=== PATIENT | female | born 1965 | race Caucasian/White ===

== ENCOUNTER 2018-06-21 04:55 | Inpatient (IN) ==
[2018-06-15 16:08] LABS: Appearance,Urine CLEAR; Bilirubin,Urine NEG (NEG); Color,Urine STRAW; Glucose,Urine (UA) NEGATIVE (NEG); Leukocyte Esterase,Urine NEG /uL (NEG); Protein,Urine NEG (NEG); Specific Gravity,Urine 1.009 (1.000-1.035); Urine Blood NEG mg/dL (<0.03); Urobilinogen,Urine NEG (NEG)
[2018-06-15 17:40] LABS: Basophils # (Auto) 0 K/mcL (0.0-0.3); Basophils % (Auto) 0.2 % (0.0-2.0); Eosinophils # (Auto) 0.1 K/mcL (0.0-0.7); Eosinophils % (Auto) 1.2 % (0.0-7.0); Granulocytes % (Auto) 55.7 % (38.0-78.0); Lymphocytes # (Auto) 3.1 K/mcL (1.5-4.8); Lymphocytes % (Auto) 33.3 % (15.5-49.0); Mean Cell Volume 88.6 fL (80.0-100.0); Mean Corpuscular Hemoglobin 29.3 pg (26.0-34.0); Monocytes # (Auto) 0.9 K/mcL (0.1-0.9); Monocytes % (Auto) 9.6 % (1.0-12.0); Platelet Count 293 K/mcL (140-440); Red Cell Distribution Width 14.5 % (11.5-14.5)
[2018-06-15 17:45] LABS: Blood Urea Nitrogen 11 mg/dl (6-20)
[2018-06-21] MEDS ORDERED: PREGABALIN 75 MG CAPSULE PO SCH (07:00)
[2018-06-21] MEDS ORDERED: oxyCODONE 10 MG TAB.ER.12H PO SCH (07:00)
[2018-06-21] MEDS ORDERED: ceFAZolin 1 GM VIAL IV SCH (07:00)
[2018-06-21] MEDS ORDERED: 0.9 % SODIUM CHLORIDE 9 ML, KETOROLAC 30 MG, ROPIVACAINE HCL/PF 49.5 ML, EPINEPHrine 0.... IJ SCH (07:00)
[2018-06-21] MEDS ORDERED: CELECOXIB 200 MG CAPSULE PO SCH (07:00)
[2018-06-21] MEDS ORDERED: ONDANSETRON 4 MG/2 ML VIAL IV ONE (07:25)
[2018-06-21] MEDS ORDERED: GLYCOPYRROLATE 0.2 MG/ML VIAL IV ONE (07:25)
[2018-06-21] MEDS ORDERED: LIDOCAINE HCL/PF 100 MG/5 ML SYRINGE IV ONE (07:25)
[2018-06-21] MEDS ORDERED: PROPOFOL 200 MG/20 ML VIAL IV ONE (07:25)
[2018-06-21] MEDS ORDERED: TRANEXAMIC ACID 1,000 MG/10 ML VIAL IV ONE ×2 (07:25→08:53)
[2018-06-21] MEDS ORDERED: KETAMINE 100 MG/ML ML IV ONE (07:25)
[2018-06-21] MEDS ORDERED: ROPIVACAINE HCL/PF 30 ML VIAL IJ ONE (07:25)
[2018-06-21] MEDS ORDERED: MIDAZOLAM 2 MG/2 ML VIAL IV ONE (07:25)
--- NOTE | 2018-06-21 08:52 | Brief Operative Note ---
Date of procedure: 06/21/18 Pre-op diagnosis: right knee osteoarthritis Post-op diagnosis: same Procedure: right total knee arthroplasty Complications: none Surgeon: Jean Carlos March [employer] Specialist: Marian Coles Estimated blood loss (cc): 100 Tourniquet Time (Minutes): 52 Specimens Removed/Pathology: none sent Condition: stable Disposition: PACU
[2018-06-21] MEDS ORDERED: IPRATROPIUM/ALBUTEROL 3 ML AMPUL.NEB NEB PRN (08:53)
[2018-06-21] MEDS ORDERED: FLEETS ADULT ENEMA PR PRN (08:53)
[2018-06-21] MEDS ORDERED: ACETAMINOPHEN 325 MG TABLET PO PRN (08:53)
[2018-06-21] MEDS ORDERED: POLYETHYLENE GLYCOL 3350 17 GM PACKET PO PRN (08:53)
[2018-06-21] MEDS ORDERED: fentaNYL 100 MCG/2 ML VIAL IV PRN (08:53)
[2018-06-21] MEDS ORDERED: BENZOCAINE/MENTHOL 1 LOZENGE PO PRN (08:53)
[2018-06-21] MEDS ORDERED: METHOCARBAMOL 1,000 MG/10 ML VIAL IV PRN (08:53)
[2018-06-21] MEDS ORDERED: HYDROcodone/APAP 10/325MG TABLET PO PRN (08:53)
[2018-06-21] MEDS ORDERED: MAGNESIUM HYDROXIDE 30 ML ORAL.SUSP PO PRN (08:53)
[2018-06-21] MEDS ORDERED: ACETAMINOPHEN 1,000 MG/100 ML BOTTLE IV ONE (08:53)
[2018-06-21] MEDS ORDERED: ONDANSETRON 4 MG/2 ML VIAL IV PRN (08:53)
[2018-06-21] MEDS ORDERED: MEPERIDINE 25 MG/ML SYRINGE IV PRN (08:53)
[2018-06-21] MEDS ORDERED: BISACODYL 10 MG SUPP.RECT PR PRN (08:53)
[2018-06-21] MEDS ORDERED: LACTATED RINGERS 1,000 ML IV SCH (09:00)
--- NOTE | 2018-06-21 09:25 | Operative Note ---
DATE OF OPERATION: 06/21/2018 PREOPERATIVE DIAGNOSIS: Degenerative joint disease, right knee. POSTOPERATIVE DIAGNOSIS: Degenerative joint disease, right knee. PROCEDURE: Right total knee arthroplasty. SURGEON: Garret March M.D. PIPELINE CONSTRUCTION INSPECTOR SURGEON: Marian Coles PA-C. ANESTHESIA: Spinal with LMA assist. ESTIMATED BLOOD LOSS: 100 mL. COMPLICATIONS: None noted. SPECIMENS REMOVED: None. DRAINS: None. TOURNIQUET TIME: 52 minutes at 300 mmHg. IMPLANTS: DePuy CMW2 bone cement 20 grams x4; DePuy Attune femoral posterior stabilized size 6 narrow, right, cemented; DePuy Attune tibial insert fixed bearing posterior stabilized size 6, 5 mm AOX; DePuy Attune patella medialized dome 38 mm cemented AOX; DePuy Attune tibial base fixed bearing size 5, cemented. INDICATIONS: The patient has had a long-standing history of worsening pain in the knee that has failed conservative treatment. Radiographs have confirmed advanced degenerative joint disease. After a long discussion about treatment options, the patient elected to proceed with a knee arthroplasty. The risks and benefits were discussed with the patient in detail including, but not limited to, the risks of anesthesia, problems with the heart or lungs related to anesthesia, infection, compromise or injury to the nerves and blood vessels, deep venous thrombosis, pulmonary embolism, pneumonia, continued pain after surgery, worsening pain or symptoms after surgery, swelling, loss of motion, instability, leg length discrepancy, and need for repeat surgery. DESCRIPTION OF PROCEDURE: The patient was seen in the pre-anesthesia waiting room where all questions were answered and the correct side and site were identified and marked. The patient was transferred to the operating room and administered the anesthetic and given pre-operative antibiotics. A time-out was then called. The extremity was prepped and draped, exsanguinated, and the tourniquet was inflated to 300 mmHg. A midline skin incision was then made with a standard medial parapatellar arthrotomy. Debridement of the menisci, ACL, and PCL was performed followed by balancing releases in the medial lateral plane. We then established intramedullary access to both the femur and tibia in a standard fashion. The femoral guide fatmata was initially placed with the distal femoral guide, pinned into place, and the distal femoral cut was performed and checked with a flat plate. We then turned our attention to the tibia. The intramedullary guide was placed with the proximal tibial cutting block. The block was appropriately positioned off the affected side, varus and valgus was checked with the extra-medullary guide, and the block was pinned into place. The proximal tibial cut was performed and the tibia was prepared for the tibial implant with appropriate rotation. The tibia, femur, and posterior compartment were debrided of osteophytes, loose bodies, and meniscal fragments We then used the gap balancing technique to balance extension with the first two cuts and good balancing was obtained with a 10 millimeter gap block. We turned our attention back to the femur and used the referencing block and implant to size appropriately. Using the gap balancing technique for the flexion space we set our rotation of the femur off the tibial cut. Anesthesia gave the patient 1 gram of Tranexamic Acid via an intravenous route. We placed the 4 in 1 cutting block and made anterior, posterior, and chamfer cuts. Box plasty cuts were then made in a standard fashion for the posterior stabilized prosthesis. We then completed osteophyte release and posterior capsule release from the posterior compartment. Trials were placed and we chose the polyethylene insert thickness that provided the best stability in all planes. With the trials in place, we did a measured resection for a resurfacing patella. We sized the patella and placed the patella trial and performed a lateral facetectomy with the saw and rongeur. Good tracking was obtained. We removed all trials, irrigated and dried all cut surfaces. We cemented the components into place including tibia, femur and patella. We placed a trial liner and held the knee in full extension with the patella compressed while the cement cured. We then removed all excess cement and placed the final polyethylene tibiofemoral component. Irrigation with 3 liters of antibiotic saline was then performed using jet-lavage. We let the tourniquet down and coagulated bleeding vessels. We injected a 100 cubic centimeter volume including Ropivacaine 49.25 cubic centimeters at 5 milligrams per cubic centimeter, Ketorolac 30 milligrams, and Epinephrine 0.5 milligrams into 100 cubic centimeters volume of normal saline. We closed the retinaculum with #2 Stratafix and 0 Vicryl. We closed the subcutaneous tissue and skin in layers out to Dermabond on the skin. A sterile pressure dressing was applied. All needle and sponge counts were correct. The patient was transferred to the recovery room in stable condition. CLAUDIO:ashvin Washburn: 06/21/2018 09:00:22 Job ID: [id number] Doc ID: [id number] Garret March MD
--- NOTE | 2018-06-21 09:38 | XRay Report ---
CLINICAL INFORMATION: Postsurgical follow-up TECHNIQUE: Portable AP and crosstable lateral right knee COMPARISON: None. FINDINGS: Status post right total knee arthroplasty. Normal anatomic alignment. There is postsurgical soft tissue and intra-articular gas. IMPRESSION: Status post right total knee arthroplasty Interpreted and Authenticated by: Jean Carlos Mckee 06/21/18
[2018-06-21] MEDS: 0.9 % SODIUM CHLORIDE 1,000 ML IV SCH ×2 (10:30→18:38)
[2018-06-21] MEDS: KETOROLAC 15 MG/ML VIAL IV SCH ×2 (12:00→18:00)
[2018-06-21] MEDS: ASPIRIN 325 MG ENTERIC COATED TABLET PO SCH ×2 (12:13→23:17)
[2018-06-21] MEDS: ONDANSETRON 4 MG/2 ML VIAL IV PRN ×2 (13:46→19:52)
[2018-06-21] MEDS: ceFAZolin 1 GM VIAL IV SCH ×2 (15:34→23:34)
[2018-06-21] MEDS: 0.9 % SODIUM CHLORIDE 10 ML SYRINGE IV SCH ×2 (15:50→23:34)
[2018-06-21] MEDS: DOCUSATE SODIUM 100 MG CAPSULE PO SCH ×2 (19:09→23:18)
[2018-06-21] MEDS ORDERED: CYCLOBENZAPRINE 10 MG TABLET PO SCH (21:00)
[2018-06-21] MEDS: SENNOSIDES 1 TABLET PO SCH (23:17)
[2018-06-21] MEDS: ONDANSETRON ODT 4 MG TABLET SL PRN (23:33)
[2018-06-22] MEDS: KETOROLAC 15 MG/ML VIAL IV SCH ×5 (00:35→23:53)
[2018-06-22] MEDS: 0.9 % SODIUM CHLORIDE 1,000 ML IV SCH ×4 (02:22→21:37)
[2018-06-22] MEDS: ONDANSETRON 4 MG/2 ML VIAL IV PRN (06:26)
[2018-06-22] MEDS: 0.9 % SODIUM CHLORIDE 10 ML SYRINGE IV SCH ×3 (06:36→23:54)
--- NOTE | 2018-06-22 06:45 | Orthopedic Progress Note ---
Subjective Patient information: Note initiated : 06/22/18 at 6:42 am Service Date, if different from initiated Date: [] Patient: Shree Perdomo 52 y/o F admitted on 06/21/18 for Right Total Knee Arthroplasty. Chief Complaint: [POD #1 s/p right TKA Doing okay this morning. Struggled with pain overnight. Also had low BP per nurse (90s/60s) which is not typical per the patient. Denies light headedness, headache, SOB, CP, numbness, tingling or calf pain. Also been nauseous all night. Been getting Zofran prn. Unable to keep food down. Patient states Morphine is working, Hydrocodone is not.] Objective Vital signs: Vital Signs Temp Pulse Resp BP BP Pulse Ox 06/22/18 04:00 98.1 F 85 16 91/56 97 06/22/18 00:00 97.8 F 80 16 117/72 100 06/21/18 19:08 97.4 F 78 18 102/63 98 06/21/18 17:11 97.2 F 70 14 95/65 96 06/21/18 11:39 77 107/73 98 06/21/18 11:24 70 108/69 98 06/21/18 11:09 72 104/70 97 06/21/18 10:54 72 106/69 97 06/21/18 10:39 80 108/70 97 06/21/18 10:24 74 112/72 96 06/21/18 10:15 99 06/21/18 10:09 78 117/73 97 06/21/18 09:55 96.6 F L 86 21 125/68 96 06/21/18 09:40 97.8 F 87 13 128/70 97 06/21/18 09:25 96.1 F L 91 H 18 117/67 99 06/21/18 09:20 87 17 123/79 100 06/21/18 09:15 89 16 124/68 100 06/21/18 09:10 98.0 F 106 H 14 129/80 97 Intake and Output 06/21/18 06/22/18 06/22/18 21:59 05:59 13:59 Intake Total 1000 / 1000 967 / 967 Output Total 400 / 400 500 / 500 Balance 600 / 600 467 / 467 Intake: IV 1000 / 1000 967 / 967 Sodium Chloride 0.9% 1,000 ml @ 1000 / 1000 967 / 967 125 mls/hr IV .Q8H [facility] Rx#: [id number] Output: Urine Catheter Amount 400 / 400 Void Amount 250 / 250 Emesis 250 / 250 Other: Urine Appearance Clear Urine Color Dark Yellow Urine Odor Normal # Voids 1 Weight 190 lb Intake & Output: Intake & Output 06/21/18 06/22/18 06/22/18 21:59 05:59 13:59 Intake Total 1000 / 1000 967 / 967 Output Total 400 / 400 500 / 500 Balance 600 / 600 467 / 467 Weight 190 lb Intake: IV 1000 / 1000 967 / 967 Sodium Chloride 0.9% 1,000 ml @ 1000 / 1000 967 / 967 125 mls/hr IV .Q8H [facility] Rx#: [id number] Output: Urine Catheter Amount 400 / 400 Void Amount 250 / 250 Emesis 250 / 250 Other: Urine Appearance Clear Urine Color Dark Yellow Urine Odor Normal # Voids 1 Incision: Yes healing, No draining, No red, No swollen, No inflamed, Yes clean and dry Incision clean and dry: Yes Dressing: Yes clean, Yes dry, Yes intact Weight bearing status: as tolerated Neurological exam IM: Yes alert, Yes oriented X3, Yes motor sensory intact, Yes neurovascular intact Extremities exam IM: No calf tenderness, Yes normal capillary refill, No Johnny' s sign, Yes Foot pink and warm, Yes neurovascular intact - Periperhal Pulses Peripheral pulses: 2+: dorsalis pedis (L), dorsalis pedis (R), posterior tibialis (L), posterior tibialis (R) - Labs CBC & BMP: 06/22/18 04:51 06/15/18 14:39 Labs: Orthopedic Labs 06/15/18 14:39 PT 12.3 INR 0.9 06/22/18 06/15/18 04:51 14:39 Hgb 10.9 L 13.8 Hct 32.4 L 41.7 Assessment and Plan (1) Knee osteoarthritis POD #1 s/p right TKA: -monitor BP. Encourage fluids and food -Zofran prn nausea -switch from Hydrocodone to Oxycodone to see if change helps -ambulate as tolerated -dermabond -d/c planning likely to home tomorrow once pain and nausea are better Status: Acute
[2018-06-22] MEDS: oxyCODONE/APAP 5/325MG TABLET PO PRN ×5 (07:43→21:11)
[2018-06-22] MEDS: DOCUSATE SODIUM 100 MG CAPSULE PO SCH ×2 (08:16→21:13)
[2018-06-22] MEDS: ASPIRIN 325 MG ENTERIC COATED TABLET PO SCH ×2 (08:16→21:11)
[2018-06-22] MEDS: ONDANSETRON ODT 4 MG TABLET SL PRN (10:33)
[2018-06-22] MEDS: METHOCARBAMOL 750 MG TABLET PO PRN ×2 (10:34→23:54)
[2018-06-22] MEDS: SENNOSIDES 1 TABLET PO SCH (21:11)
[2018-06-23] MEDS: 0.9 % SODIUM CHLORIDE 1,000 ML IV SCH (01:29)
[2018-06-23] MEDS: oxyCODONE/APAP 5/325MG TABLET PO PRN ×2 (03:57→10:28)
[2018-06-23] MEDS: KETOROLAC 15 MG/ML VIAL IV SCH (05:49)
[2018-06-23] MEDS: 0.9 % SODIUM CHLORIDE 10 ML SYRINGE IV SCH (05:50)
--- NOTE | 2018-06-23 07:08 | Orthopedic Progress Note ---
Subjective Patient information: Note initiated : 06/23/18 at 7:07 am Service Date, if different from initiated Date: [] Patient: Shree Perdomo 52 y/o F admitted on 06/21/18 for Right Total Knee Arthroplasty. Chief Complaint: [] Interval history: doing well. much better today Objective Vital signs: Vital Signs Temp Pulse Resp BP Pulse Ox 06/23/18 04:05 99.2 F H 87 16 122/66 93 06/22/18 23:40 98.7 F 92 H 16 123/67 92 06/22/18 19:45 98.1 F 99 H 16 107/62 95 06/22/18 17:57 98.6 F 97 H 16 110/68 93 06/22/18 12:56 98.6 F 93 H 16 114/75 96 06/22/18 07:53 98.6 F 75 16 102/59 90 Intake and Output 06/22/18 06/23/18 06/23/18 21:59 05:59 13:59 Intake Total 1010 / 1010 200 / 200 Output Total 1450 / 1450 Balance -440 / -440 200 / 200 Intake: Oral 1010 / 1010 200 / 200 Output: Void Amount 1450 / 1450 Other: Meal Lunch Percent of Meal Consumed 75% Urine Appearance Clear Clear Urine Color Straw Bright Yellow Urine Odor Normal Normal # Voids 1 Weight 191 lb Intake & Output: Intake & Output 06/22/18 06/23/18 06/23/18 21:59 05:59 13:59 Intake Total 1010 / 1010 200 / 200 Output Total 1450 / 1450 Balance -440 / -440 200 / 200 Weight 191 lb Intake: Oral 1010 / 1010 200 / 200 Output: Void Amount 1450 / 1450 Other: Meal Lunch Percent of Meal Consumed 75% Urine Appearance Clear Clear Urine Color Straw Bright Yellow Urine Odor Normal Normal # Voids 1 Incision: Yes healing Incision clean and dry: Yes Dressing: Yes clean, Yes dry, Yes intact Weight bearing status: full Neurological exam IM: Yes abnormal gait, Yes alert, Yes oriented X3, Yes motor sensory intact, Yes neurovascular intact Extremities exam IM: No calf tenderness, Yes Foot pink and warm, Yes neurovascular intact - Labs CBC & BMP: 06/23/18 04:30 06/15/18 14:39 Labs: Orthopedic Labs 06/15/18 14:39 PT 12.3 INR 0.9 06/23/18 06/22/18 06/15/18 04:30 04:51 14:39 Hgb 10.4 L 10.9 L 13.8 Hct 31.1 L 32.4 L 41.7 Assessment and Plan (1) Knee osteoarthritis pod 2 s/p tka wbat pain control dvt prophylaxis d/c planning - likely home today Status: Acute
--- NOTE | 2018-06-23 07:10 | Discharge Summary ---
Ortho Discharge - TKA - Patient Instructions Diet: Regular Diet Activity: activity as tolerated, ambulate with assistive device, weight bearing as tolerated Total Knee Protocol: For Total Knee: Start ROM DEB with stationary bike or rocking chair. Work on gaining full extension of knee. Posterior dislocation precautions provided. Hip abductor strengthening and gait training instructions provided. Apply Cryocuff as instructed. Dressing Care: May shower in 2 days - Problem Maintenance (1) Knee osteoarthritis Status: Acute - Follow Up Plan Follow Up Appointments: Marian Coles PA-C [Physician Signal Maintenance Technician] - 07/06/18 11:20 am Disposition: Home, Self-Care Prognosis: Good Rehab Potential: Good I certify that the patient requires SNF services: No Overall status at discharge: patient is progressing back to baseline
[2018-06-23] MEDS: DOCUSATE SODIUM 100 MG CAPSULE PO SCH (10:30)
[2018-06-23] MEDS: ASPIRIN 325 MG ENTERIC COATED TABLET PO SCH (10:31)
== END 2018-06-23 10:45 | disposition home or self-care (01) | DRG 470 ==
LOC: MEDSUR 04:55
PROVIDERS: ADMIT Orthopaedic Surgery Sports Medicine; ATTEND Orthopaedic Surgery Sports Medicine
CPT/HCPCS: 62322; 97162; 97166; C1776; J0131; J0690; J1885; J2001; J2250; J2270; J2405; J2795; J7030; J7120